=== PATIENT | male | born 1945 | race Caucasian/White ===

== ENCOUNTER 2018-05-14 16:53 | Inpatient (IN) | payer MEDICARE ==
[2018-05-14] MEDS ORDERED: Zofran 4 MG/2 ML VIAL IV ONE (17:19)
[2018-05-14] MEDS ORDERED: MORPHINE SULFATE 2 MG INJ IV ONE (17:19)
[2018-05-14] MEDS ORDERED: TORAdol 30 mg Injection IV ONE (17:19)
[2018-05-14] MEDS ORDERED: Sodium Chloride 0.9% 1000 ML 1,000 ML IV STA (17:19)
--- NOTE | 2018-05-14 17:19 | ERPHSYRPT ---
- History of Present Illness Time Seen by Provider: 05/14/18 17:12 Historian: patient, family Exam Limitations: no limitations Physician History: The patient is a 72-year-old male with his complaining of right lower quadrant abdominal pain for 2-3 days. The pain initially began higher up on the right side that has migrated down to the right lower quadrant. He has not been hungry or thirsty for the past 2 days. He denies nausea or vomiting. He denies diarrhea. He denies fever. His surgical history is negative for abdominal surgeries. His past medical history significant for hypertension. Timing/Duration: day(s) (3), gradual onset, worse Activities at Onset: none Quality: sharpness Abdominal Pain Onset Location: RLQ Pain Radiation: no radiation Severity of Pain-Max: moderate Severity of Pain-Current: moderate Modifying Factors: Improves With: nothing Associated Symptoms: denies symptoms Previous symptoms: no prior history Allergies/Adverse Reactions: No Known Drug Allergies Allergy (Verified 05/14/18 17:17) Home Medications: Amlodipine Besylate 10 mg [Norvasc 10 MG] 10 mg PO DAILY 05/14/18 [History] Primidone 50 MG [Mysoline 50Mg] 50 mg PO DAILY 05/14/18 [History] Propranolol HCl [Propranolol HCl ER] 160 mg PO DAILY 05/14/18 [History] - Review of Systems Constitutional: No Fever, No Chills Eyes: No Symptoms Ears, Nose, & Throat: No Symptoms Respiratory: No Cough, No Dyspnea Cardiac: No Chest Pain, No Edema, No Syncope Abdominal/Gastrointestinal: Abdominal Pain, Appetite Changes Genitourinary Symptoms: No Dysuria Musculoskeletal: No Back Pain, No Neck Pain Skin: No Rash Neurological: No Dizziness, No Focal Weakness, No Sensory Changes Psychological: No Symptoms Endocrine: No Symptoms Hematologic/Lymphatic: No Symptoms Immunological/Allergic: No Symptoms All Other Systems: Reviewed and Negative - Nursing Vital Signs Nursing Vital Signs: Initial Vital Signs Temperature 99.4 F 05/14/18 17:07 Pulse Rate 74 05/14/18 17:07 Respiratory Rate 18 05/14/18 17:07 Blood Pressure 129/83 05/14/18 17:07 O2 Sat by Pulse Oximetry 97 05/14/18 17:07 Pain Scale Pain Intensity 0 - Physical Exam General Appearance: no apparent distress, alert Eye Exam: PERRL/EOMI, eyes nml inspection Ears, Nose, Throat Exam: normal ENT inspection, pharynx normal, moist mucous membranes Neck Exam: normal inspection, non-tender, supple, full range of motion Respiratory Exam: normal breath sounds, lungs clear, No respiratory distress Cardiovascular Exam: regular rate/rhythm, normal heart sounds Gastrointestinal/Abdomen Exam: normal bowel sounds, tenderness (RLQ), guarding ( RLQ), rebound (RLQ) Rectal Exam: not done Back Exam: normal inspection, normal range of motion, No CVA tenderness, No vertebral tenderness Extremity Exam: normal inspection, normal range of motion, pelvis stable Neurologic Exam: alert, oriented x 3, cooperative, normal mood/affect, nml cerebellar function, sensation nml, No motor deficits Skin Exam: normal color, warm, dry SpO2 Interpretation: normal Oxygen Delivery: Room Air - CT Exams Abdomen/Pelvis CT Interpretation: Tele-radiologist Report (Per Dr Robins), appendicitis Ordered Tests: Active Orders 24 hr Category Date Time Status Clean Catch Urine Specimen STAT Care 05/14/18 17:14 Active IV Insertion STAT Care 05/14/18 17:14 Active ABDOMEN AND PELVIS W/0 CONTRAS [CT] Stat Exams 05/14/18 17:46 Taken BLOOD CULTURE Stat Lab 05/14/18 17:42 Received CBC W DIFF Stat Lab 05/14/18 17:41 Completed CMP Stat Lab 05/14/18 17:41 Completed LIPASE Stat Lab 05/14/18 17:41 Completed Lactic Acid Stat Lab 05/14/18 17:19 Completed Manual Differential NC Stat Lab 05/14/18 17:41 Completed UA W/RFX UR CULTURE Stat Lab 05/14/18 18:37 Received Medication Summary Discontinued Medications Generic Name Dose Route Start Last Admin Trade Name Freq PRN Reason Stop Dose Admin Sodium Chloride 1,000 mls @ 999 mls/hr 05/14/18 17:19 05/14/18 18:35 Sodium Chloride 0.9% 1000 Ml IV 05/14/18 18:19 Infused .Q1H1M STA Infusion Sodium Chloride Confirm 05/14/18 17:26 Sodium Chloride 0.9% 1000 Ml Administered 05/14/18 17:27 Dose 1,000 mls @ ud .ROUTE .STK-MED ONE Ketorolac Tromethamine 30 mg 05/14/18 17:19 05/14/18 17:35 Toradol 30 Mg Injection IV 05/14/18 17:20 30 mg STAT ONE Administration Ketorolac Tromethamine Confirm 05/14/18 17:26 Toradol 30 Mg Injection Administered 05/14/18 17:27 Dose 30 mg .ROUTE .STK-MED ONE Morphine Sulfate 2 mg 05/14/18 17:19 05/14/18 17:34 Morphine Sulfate 2 Mg Inj IV 05/14/18 17:20 2 mg STAT ONE Administration Morphine Sulfate Confirm 05/14/18 17:26 Morphine Sulfate 2 Mg Inj Administered 05/14/18 17:27 Dose 2 mg .ROUTE .STK-MED ONE Ondansetron HCl 4 mg 05/14/18 17:19 05/14/18 17:35 Zofran 4 Mg/2 Ml Vial IV 05/14/18 17:20 4 mg STAT ONE Administration Ondansetron HCl Confirm 05/14/18 17:26 Zofran 4 Mg/2 Ml Vial Administered 05/14/18 17:27 Dose 4 mg .ROUTE .STK-MED ONE Lab/Rad Data: Laboratory Result Diagrams 05/14/18 17:41 05/14/18 17:41 Laboratory Results 05/14/18 05/14/18 05/14/18 Range/Units 17:41 17:41 17:19 WBC 19.0 H (4.0-10.5) K/mm3 RBC 5.01 (4.1-5.6) M/mm3 Hgb 15.2 (12.5-18.0) gm/dl Hct 44.4 (42-50) % MCV 88.6 (78-100) fl MCH 30.3 (26-32) pg MCHC 34.2 (32-36) g/dl RDW 13.4 (11.5-14.0) % Plt Count 221 (150-450) K/mm3 MPV 12.0 H (6-9.5) fl Absolute Granulocytes 15.21 H (1.4-6.9) Sodium 134 L (137-145) mmol/L Potassium 3.8 (3.5-5.1) mmol/L Chloride 99 (98-107) mmol/L Carbon Dioxide 23 (22-30) mmol/L Anion Gap 17.2 H (5-15) MEQ/L BUN 16 (9-20) mg/dL Creatinine 0.87 (0.66-1.25) mg/dL Estimated GFR > 60.0 ML/MIN Glucose 118 H (74-106) mg/dL Lactic Acid 1.3 (0.4-2.0) Calcium 9.4 (8.4-10.2) mg/dL Total Bilirubin 0.90 (0.2-1.3) mg/dL AST 20 (17-59) U/L ALT 19 (0-50) U/L Alkaline Phosphatase 71 (38-126) U/L Serum Total Protein 7.6 (6.3-8.2) g/dL Albumin 4.7 (3.5-5.0) g/dL Lipase 38 (23-300) U/L - Progress Progress: improved Progress Note: 05/14/18 18:56 Discussed pt care with Dr Kedar Bonilla and Dr Kedar Esquivel for admission and surgery. Dr Arnold will perform surgery tomorrow morning. Discussed with Dr.: Dede Bailon (For Dr Arnold) Will see patient in: hospital (observation) Counseled pt/family regarding: diagnosis, rad results - Departure Time of Disposition: 18:55 Departure Disposition: Observation (Per Dr Kedar Bonilla for surgery by Dr Arnold) Clinical Impression: Appendicitis Condition: Stable Critical Care Time: No Referrals: DOMONIQUE BONILLA [Primary Care Provider] -
[2018-05-14] MEDS ORDERED: Sodium Chloride 0.9% 1000 ML 1,000 ML ONE (17:26)
[2018-05-14] MEDS ORDERED: MORPHINE SULFATE 2 MG INJ ONE (17:26)
[2018-05-14] MEDS ORDERED: Zofran 4 MG/2 ML VIAL ONE (17:26)
[2018-05-14] MEDS ORDERED: TORAdol 30 mg Injection ONE (17:26)
[2018-05-14 17:56] LABS: Granulocyte Absolute (ANC) 15.21 (1.4-6.9); Hematocrit 44.4 % (42-50); Hemoglobin 15.2 gm/dl (12.5-18.0); Mean Cell Volume 88.6 fl (78-100); Mean Corpuscular Hemoglobin 30.3 pg (26-32); Mean Corpuscular Hgb Concent. 34.2 g/dl (32-36); Platelet Count 221 K/mm3 (150-450); Red Blood Count 5.01 M/mm3 (4.1-5.6); Red Cell Distribution Width 13.4 % (11.5-14.0)
[2018-05-14 18:06] LABS: ALBUMIN 4.7 g/dL (3.5-5.0); ALKALINE PHOSPHATASE 71 U/L (38-126); ANION GAP 17.2 MEQ/L (5-15); BLOOD UREA NITROGEN 16 mg/dL (9-20); CHLORIDE 99 mmol/L (98-107); Calcium 9.4 mg/dL (8.4-10.2); Carbon Dioxide 23 mmol/L (22-30); Creatinine 1 0.87 mg/dL (0.66-1.25); Glucose 118 mg/dL (74-106); LIPASE 38 U/L (23-300); Potassium 3.8 mmol/L (3.5-5.1); SGOT/AST 20 U/L (17-59); SGPT/ALT 19 U/L (0-50); SODIUM 134 mmol/L (137-145); Total Protein 7.6 g/dL (6.3-8.2)
[2018-05-14 18:57] LABS: ATYPICAL LYMPHS 2 %; BAND 2 % (0.0-2.0); Lymphocytes 10 % (24-44); Monocyte 9 % (0.0-12.0); Neutrophils 77 % (36.-66.); Platelet Estimate NORMAL (NORMAL); Total Cells Counted 100
[2018-05-14] MEDS ORDERED: Zosyn 3.375GM/100 Ml D5W 3.375 GM/100 ML IVPB IV STA (18:57)
[2018-05-14] MEDS ORDERED: Zosyn 3.375GM/100 Ml D5W 3.375 GM/100 ML IVPB IV ONE (19:12)
[2018-05-14 19:13] LABS: Appearance SLIGHTLY CLOUDY (CLEAR); Bilirubin SMALL (NEGATIVE); Blood MODERATE Ery/ul (0-5); Glucose NEGATIVE (NEGATIVE); Ketones TRACE (NEGATIVE); Leukocyte Esterase NEGATIVE (NEGATIVE); Nitrite NEGATIVE (NEGATIVE); Protein,Urine Dip 100 (Negative); Specific Gravity 1.024 (1.005-1.025); Urobilinogen 2 mg/dL (0-1)
[2018-05-14] MEDS ORDERED: MORPHINE SULFATE 2 MG INJ IV PRN (19:24)
[2018-05-14] MEDS ORDERED: Zofran 4 MG/2 ML VIAL IV PRN (19:24)
[2018-05-14] MEDS ORDERED: TORAdol 30 mg Injection IV PRN (19:24)
--- NOTE | 2018-05-14 19:48 | XRAY ---
Indication: Right lower quadrant pain. Tenderness on palpation. Multiple contiguous axial images obtained through the abdomen and pelvis without contrast as ordered. Comparison: None Lung bases demonstrates bibasilar atelectasis/scarring. No infiltrate or effusion. Heart is not enlarged. Noncontrasted stomach and bowel loops appear nonobstructed. Appendix is enlarged up to 14 mm diameter with periappendiceal stranding favoring acute appendicitis. Tiny appendicolith at the base of the appendix. Tiny free fluid but no walled off fluid collection or free air. Bilateral adrenal adenomas, largest on the right measuring 2.1 cm. 3.7 cm left renal cyst. Previous prostatectomy. Remaining liver, gallbladder, pancreas, spleen, kidneys, ureters, and bladder appear unremarkable for noncontrast exam. Mild aortoiliac calcifications without AAA. Osseous structures intact with mild degenerative changes throughout the spine. Small fatty left inguinal hernia. Impression: 1. CT findings favoring acute appendicitis with tiny free fluid. 2. Incidental bilateral adrenal adenomas, left renal cyst, and small fatty left inguinal hernia. Comment: Preliminary interpretation was made by [facility]. No discrepancy. CTDI 19.68
[2018-05-14] MEDS: Sodium Chloride 0.9% 1000 ML 1,000 ML IV SCH (19:54)
[2018-05-15] MEDS: Zosyn 3.375GM/100 Ml D5W 3.375 GM/100 ML IVPB IV SCH ×4 (00:43→17:34)
[2018-05-15 05:54] LABS: Basophil (Absolute #) 0 (0-0.4); Eosinophil (Absolute #) 0 (0-0.5); Granulocyte Absolute (ANC) 13.47 (1.4-6.9); Granulocytes % 83.1 % (36.0-66.0); Hematocrit 36.6 % (42-50); Hemoglobin 12.3 gm/dl (12.5-18.0); Lymphocyte (Absolute #) 1.23 (1.0-4.6); Lymphocytes % 7.6 % (24.0-44.0); Mean Cell Volume 90.1 fl (78-100); Mean Corpuscular Hgb Concent. 33.6 g/dl (32-36); Mean Platelet Volume 11.8 fl (6-9.5); Monocytes % 9.3 % (0.0-12.0); Platelet Count 141 K/mm3 (150-450); Red Blood Count 4.06 M/mm3 (4.1-5.6); Red Cell Distribution Width 13.2 % (11.5-14.0); White Blood Count 16.2 K/mm3 (4.0-10.5)
[2018-05-15 05:55] LABS: Mean Corpuscular Hemoglobin 30.2 pg (26-32)
[2018-05-15 06:10] LABS: BLOOD UREA NITROGEN 16 mg/dL (9-20); CHLORIDE 102 mmol/L (98-107); Calcium 8.6 mg/dL (8.4-10.2); Carbon Dioxide 25 mmol/L (22-30); Creatinine 1 0.93 mg/dL (0.66-1.25); Glucose 126 mg/dL (74-106); Potassium 3.7 mmol/L (3.5-5.1); SODIUM 136 mmol/L (137-145)
[2018-05-15] MEDS: Sodium Chloride 0.9% 1000 ML 1,000 ML IV SCH (07:35)
[2018-05-15] MEDS ORDERED: MEFOXIN 2 GM** 2 GM in Dextrose 5%/Water IV Soln. 100ML PLUS BAG 100 ML IV SCH (08:15)
--- NOTE | 2018-05-15 08:26 | PCM.HP ---
History of Present Illness - Chief Complaint Chief Complaint: Appendicitis Date: 05/15/18 History of Present Illness: is a 72 year old male. who began having vague abdominal pains and progressed to right lower quadrant pain tuesday evening into tuesday and much worse on Tuesday. He was eating up until Tuesday and then developed chills and fever and presented to the ED. no vomiting or diarrhea. He was otherwise feeling well up until now. He denies any cardiac history no chest pain or shortness of breath. He walks 2 miles per day usually with no dyspnea or chest pain. - Review of Systems Constitutional: Fever, Chills Eyes: No Symptoms Ears, Nose, & Throat: No Symptoms Respiratory: No Cough, No Short Of Breath Cardiac: No Chest Pain, No Edema, No Syncope Abdominal/Gastrointestinal: Abdominal Pain, No Nausea, No Vomiting, No Diarrhea Genitourinary Symptoms: No Dysuria Musculoskeletal: No Back Pain, No Neck Pain Skin: No Rash Neurological: No Dizziness, No Focal Weakness, No Sensory Changes Psychological: No Symptoms Endocrine: No Symptoms Hematologic/Lymphatic: No Symptoms Immunological/Allergic: No Symptoms Medications & Allergies Home Medications: Home Medication List Amlodipine Besylate 10 mg [Norvasc 10 MG] 10 mg PO DAILY 05/14/18 [History Confirmed 05/14/18] Lisinopril/Hctz 20/12.5 mg [Lisinopril/ Hctz 20/12.5] 1 tab PO DAILY 05/14/18 [ History Confirmed 05/14/18] Primidone 50 MG [Mysoline 50Mg] 50 mg PO HS 05/14/18 [History Confirmed 10/26] Propranolol HCl [Propranolol HCl ER] 160 mg PO DAILY 05/14/18 [History Confirmed 05/14/18] Allergies/Adverse Reactions: Allergies Allergy/AdvReac Type Severity Reaction Status Date / Time No Known Drug Allergies Allergy Verified 05/14/18 17:17 - Past Medical History Past Medical History: Yes Neurological History: Other ENT History: No Pertinent History Cardiac History: High Cholesterol, Hypertension Respiratory History: No Pertinent History Endocrine Medical History: No Pertinent History Musculoskelatal History: No Pertinent History GI Medical History: No Pertinent History History: No Pertinent History Pyscho-Social History: No Pertinent History Male Reproductive Disorders: Prostate Cancer Comment: essential tremor in left hand - Past Surgical History Past Surgical History: Yes Neuro Surgical History: No Pertinent History Cardiac History: No Pertinent History Respiratory Surgery: No Pertinent History GI Surgical History: No Pertinent History Genitourinary Surgical Hx: No Pertinent History Musculskeletal Surgical Hx: No Pertinent History Male Surgical History: Prostate Surgery Other Surgical History: prostate removed 1999 - Social History Smoking Status: Never smoker Exposure to second hand smoke: No Alcohol: Rarely Drug Use: none - Physical Exam Vital Signs: Vital Signs - 24 hr Temp Pulse Resp BP Pulse Ox 05/15/18 07:51 100.3 F 67 16 108/57 94 L 05/15/18 04:00 99.7 F 69 16 117/56 91 L 05/14/18 23:49 99.3 F 76 20 129/60 93 L 05/14/18 19:40 98.5 F 64 20 120/65 95 05/14/18 18:31 64 16 128/72 95 05/14/18 18:02 64 16 116/83 95 05/14/18 17:07 99.4 F 74 18 129/83 97 General Appearance: no apparent distress, alert Neurologic Exam: alert, oriented x 3, cooperative, normal mood/affect, nml cerebellar function, nml station & gait, sensation nml, No motor deficits Eye Exam: PERRL/EOMI, eyes nml inspection Ears, Nose, Throat Exam: normal ENT inspection, TMs normal, pharynx normal, moist mucous membranes Neck Exam: normal inspection, non-tender, supple, full range of motion Respiratory Exam: normal breath sounds, lungs clear, No respiratory distress Cardiovascular Exam: regular rate/rhythm, normal heart sounds, normal peripheral pulses Gastrointestinal/Abdomen Exam: soft, normal bowel sounds, tenderness (right lower quadrant), guarding, No mass, No rebound Back Exam: normal inspection, normal range of motion, No CVA tenderness, No vertebral tenderness Extremity Exam: normal inspection, normal range of motion, pelvis stable Skin Exam: normal color, warm, dry, No rash Lymphatic Exam: No adenopathy Results - Labs Lab/Micro Results: Lab Results-Last 24 Hours 05/14/18 05/14/18 05/14/18 Range/Units 17:19 17:41 17:41 WBC 19.0 H (4.0-10.5) K/mm3 RBC 5.01 (4.1-5.6) M/mm3 Hgb 15.2 (12.5-18.0) gm/dl Hct 44.4 (42-50) % MCV 88.6 (78-100) fl MCH 30.3 (26-32) pg MCHC 34.2 (32-36) g/dl RDW 13.4 (11.5-14.0) % Plt Count 221 (150-450) K/mm3 MPV 12.0 H (6-9.5) fl Gran % (36.0-66.0) % Eos # (Auto) (0-0.5) Absolute Lymphs (auto) (1.0-4.6) Absolute Monos (auto) (0.0-1.3) Lymphocytes % (24.0-44.0) % Monocytes % (0.0-12.0) % Eosinophils % (0.00-5.0) % Basophils % (0.0-0.4) % Absolute Granulocytes 15.21 H (1.4-6.9) Segmented Neutrophils 77 H (36.-66.) % Band Neutrophils 2 (0.0-2.0) % Lymphocytes (Manual) 10 L (24-44) % Monocytes (Manual) 9 (0.0-12.0) % Basophils # (0-0.4) Atypical Lymphocytes 2 % Platelet Estimate NORMAL (NORMAL) RBC Morphology NORMAL Sodium 134 L (137-145) mmol/L Potassium 3.8 (3.5-5.1) mmol/L Chloride 99 (98-107) mmol/L Carbon Dioxide 23 (22-30) mmol/L Anion Gap 17.2 H (5-15) MEQ/L BUN 16 (9-20) mg/dL Creatinine 0.87 (0.66-1.25) mg/dL Estimated GFR > 60.0 ML/MIN Glucose 118 H (74-106) mg/dL Lactic Acid 1.3 (0.4-2.0) Calcium 9.4 (8.4-10.2) mg/dL Total Bilirubin 0.90 (0.2-1.3) mg/dL AST 20 (17-59) U/L ALT 19 (0-50) U/L Alkaline Phosphatase 71 (38-126) U/L Serum Total Protein 7.6 (6.3-8.2) g/dL Albumin 4.7 (3.5-5.0) g/dL Lipase 38 (23-300) U/L Urine Color (YELLOW) Urine Appearance (CLEAR) Urine pH (5-6) Ur Specific [place] (1.005-1.025) Urine Protein (Negative) Urine Ketones (NEGATIVE) Urine Blood (0-5) Butch/ul Urine Nitrite (NEGATIVE) Urine Bilirubin (NEGATIVE) Urine Urobilinogen (0-1) mg/dL Ur Leukocyte Esterase (NEGATIVE) Urine WBC (Auto) (0-5) /HPF Urine RBC (Auto) (0-2) /HPF U Epithel Cells (Auto) (FEW) /HPF Urine Bacteria (Auto) (NEGATIVE) /HPF Calcium Oxalate Crystal (NEGATIVE) /HPF Other Casts (Auto) (NEGATIVE) /LPF Urine Mucus (Auto) (NEGATIVE) /HPF Urine Culture Reflexed (NO) Urine Glucose (NEGATIVE) mg/dL 05/14/18 05/15/18 05/15/18 Range/Units 18:37 05:33 05:33 WBC 16.2 H (4.0-10.5) K/mm3 RBC 4.06 L (4.1-5.6) M/mm3 Hgb 12.3 L (12.5-18.0) gm/dl Hct 36.6 L (42-50) % MCV 90.1 (78-100) fl MCH 30.2 (26-32) pg MCHC 33.6 (32-36) g/dl RDW 13.2 (11.5-14.0) % Plt Count 141 L (150-450) K/mm3 MPV 11.8 H (6-9.5) fl Gran % 83.1 H (36.0-66.0) % Eos # (Auto) 0 (0-0.5) Absolute Lymphs (auto) 1.23 (1.0-4.6) Absolute Monos (auto) 1.50 H (0.0-1.3) Lymphocytes % 7.6 L (24.0-44.0) % Monocytes % 9.3 (0.0-12.0) % Eosinophils % 0.0 (0.00-5.0) % Basophils % 0.0 (0.0-0.4) % Absolute Granulocytes 13.47 H (1.4-6.9) Segmented Neutrophils (36.-66.) % Band Neutrophils (0.0-2.0) % Lymphocytes (Manual) (24-44) % Monocytes (Manual) (0.0-12.0) % Basophils # 0 (0-0.4) Atypical Lymphocytes % Platelet Estimate (NORMAL) RBC Morphology Sodium 136 L (137-145) mmol/L Potassium 3.7 (3.5-5.1) mmol/L Chloride 102 (98-107) mmol/L Carbon Dioxide 25 (22-30) mmol/L Anion Gap 12.0 (5-15) MEQ/L BUN 16 (9-20) mg/dL Creatinine 0.93 (0.66-1.25) mg/dL Estimated GFR > 60.0 ML/MIN Glucose 126 H (74-106) mg/dL Lactic Acid (0.4-2.0) Calcium 8.6 (8.4-10.2) mg/dL Total Bilirubin (0.2-1.3) mg/dL AST (17-59) U/L ALT (0-50) U/L Alkaline Phosphatase (38-126) U/L Serum Total Protein (6.3-8.2) g/dL Albumin (3.5-5.0) g/dL Lipase (23-300) U/L Urine Color POLA (YELLOW) Urine Appearance SLIGHTLY CLOUDY (CLEAR) Urine pH 5.0 (5-6) Ur Specific [place] 1.024 (1.005-1.025) Urine Protein 100 (Negative) Urine Ketones TRACE (NEGATIVE) Urine Blood MODERATE (0-5) Butch/ul Urine Nitrite NEGATIVE (NEGATIVE) Urine Bilirubin SMALL (NEGATIVE) Urine Urobilinogen 2 (0-1) mg/dL Ur Leukocyte Esterase NEGATIVE (NEGATIVE) Urine WBC (Auto) 3-5 (0-5) /HPF Urine RBC (Auto) 0-2 (0-2) /HPF U Epithel Cells (Auto) RARE (FEW) /HPF Urine Bacteria (Auto) RARE (NEGATIVE) /HPF Calcium Oxalate Crystal 26-50 (NEGATIVE) /HPF Other Casts (Auto) NEGATIVE (NEGATIVE) /LPF Urine Mucus (Auto) MANY (NEGATIVE) /HPF Urine Culture Reflexed YES (NO) Urine Glucose NEGATIVE (NEGATIVE) mg/dL Microbiology 05/14/18 18:37 Urine Culture - Preliminary Urine, Void NO GROWTH TO DATE - Radiology Impressions Radiology Exams & Impressions: Radiology Procedures Category Date Time Status ABDOMEN AND PELVIS W/0 CONTRAS [CT] Stat Exams 05/14/18 17:46 Completed - Other Procedures and Tests Respiratory Therapy 05/15/18 08:19 EKG ROUTINE EKG ROUTINE Assessment/Plan (1) Appendicitis Current Visit: Yes Status: Acute Assessment & Plan: preop evaluation we are getting an ekg with his history of hypertension. this is pending otherwise he had good exercise capacity and should be a good surgical candidate for the necessary surgery and no additional pre op testing recommended at this time NPO IV fluids he currently is on Zosyn from ED pending surgery PCP Dr. Arauz Code(s): K37 - UNSPECIFIED APPENDICITIS (2) Essential hypertension Current Visit: Yes Status: Chronic Code(s): I10 - ESSENTIAL (PRIMARY) HYPERTENSION (3) Essential tremor Current Visit: Yes Status: Chronic Code(s): G25.0 - ESSENTIAL TREMOR
[2018-05-15] MEDS ORDERED: Lactated Ringers 1,000 ML IV SCH (08:30)
[2018-05-15] MEDS ORDERED: Lactated Ringers 1,000 ML IV ONE (09:23)
[2018-05-15] MEDS ORDERED: Sensorcaine 0.25% 10 ML ONE (09:23)
[2018-05-15] MEDS: NON-FORMULARY ITEM PO SCH (09:27)
[2018-05-15] MEDS: NORVASC 5 MG PO SCH (09:28)
[2018-05-15] MEDS ORDERED: PROPRANOLOL HCL 160 MG PO SCH (10:00)
[2018-05-15] MEDS ORDERED: NON-FORMULARY ITEM (Amlodipine Besylate 10 Mg [Norvasc 10 Mg] 10 MG) PO SCH (10:00)
--- NOTE | 2018-05-15 13:26 | CONS ---
CONSULT DATE: 05/15/2018 HISTORY: The patient was apparently admitted around 1700 hours or so yesterday to the emergency room. Dr. Esquivel was called for acute appendicitis and two to three day history of some right-sided abdominal pain. CT scan showed appendicolith, a lot of inflammatory changes consistent with appendicitis. Again, Dr. Esquivel was called sounds like between 1700 and 1800 hours yesterday. He did not have time to do the appendectomy apparently. PAST MEDICAL HISTORY: Hypertension, prostate cancer and some tremors. He denies any chronic illnesses. PAST SURGICAL HISTORY: Prostatectomy for prostate cancer in the past. MEDICATIONS: Amlodipine, primidone, propranolol. ALLERGIES: NKDA. FAMILY HISTORY: Negative for any major medical problems according to the patient. SOCIAL HISTORY: No alcohol abuse. REVIEW OF SYSTEMS: Twelve systems reviewed per admission assessment, pertinent for as noted above. He denied any nausea or vomiting. He denies any change in bowel habits. The aches and pains have resolved. Otherwise twelve systems reviewed. No chest pain. LAB DATA AND TESTS: CT scan showed acute appendicitis and some small renal adenomas up to 2 cm and 3.7 cm renal cyst, small amount of fat in the inguinal canal area. White blood cell count 16,000. PHYSICAL EXAMINATION: Temperature 99.7F, blood pressure 117/56, pulse 60's to 70's. GENERAL: No acute distress. HEENT: Sclera nonicteric. NECK: No JVD. CHEST: Equal excursion, nonlabored breathing. CVS: Regular rate. rhythm and pulse. ABDOMEN: Some tenderness and a little bit of guarding right lower quadrant. No rebound currently. EXTREMITIES: No significant edema. NEURO: Alert, oriented, moving extremities grossly symmetrically. IMPRESSION: The patient was seen for Dr. Esquivel who was consulted yesterday for the patient and has not had any time to do an appendectomy so asked that I see the patient while I was doing other cases here. He likely has acute appendicitis. He could even have perforated appendicitis. Either way he needs laparoscopic appendectomy possible open. He was explained the risk, benefits of the procedure in detail but not limited to bleeding or infection, risk of trocar injury, risk of subsequent abscess formation possibly requiring percutaneous or open drainage even at later date, general risk of anesthesia, possibility of needing open procedure but not limited to. He understands perioperative risk of ileus, nausea, vomiting but not limited to or risk of abscess down the road that might require percutaneous or open drainage at a later date. He understands all of the above but not limited to, will proceed with diagnostic laparoscopy, laparoscopic appendectomy possible open when OR time is available later today or when OR time available as the OR is tied up at the moment. He agrees to the planned procedure. Continue IV antibiotics in the meantime.
--- NOTE | 2018-05-15 15:35 | OP ---
SURGERY DATE/TIME: 05/15/2018 1445 This patient was seen for Dr. Emre Esquivel who was consulted yesterday. PREOPERATIVE DIAGNOSIS: Acute appendicitis. POSTOPERATIVE DIAGNOSIS: Acute ruptured appendicitis, perforated appendicitis and peritonitis. PROCEDURE: Laparoscopic appendectomy. SURGEON: Dr. Esau Barrientos. SALES AND MERCHANDISING REPRESENTATIVE: Mk Dangelo, Medical Student III. ANESTHESIA: General. ESTIMATED BLOOD LOSS: Minimal. INDICATIONS: As noted above. Risks and benefits explained in detail but not limited to, consent obtained. DESCRIPTION OF PROCEDURE AND FINDINGS: The patient was taken to the operating room. General anesthesia was induced. Abdomen prepped and draped in usual sterile fashion. After official time out and no disagreement with planned procedure, a transverse incision made at supraumbilical area. Fascia grasped and pulled upwards. Veress needle inserted and tested with saline. Pneumoperitoneum accomplished insufflating from opening pressure of 0 to 15. A 5 mm bladeless port and camera were inserted without difficulty followed by a right mid abdomen 12 mm port and a lower mid abdomen 5 mm port under direct vision with the camera. There is no evidence of any intra-abdominal injury secondary to trocar insertion. The patient was noted to have gangrenous appendix, perforation with some purulence in the right lower quadrant, some peritonitis this is carefully mobilized upwards. Appendix mobilized at the base of the cecum. EndoGIA stapler fired across the base of the appendix to the cecum. Appendix mobilized up more out of gangrenous portion and an area ruptured carefully mobilized upwards with the LigaSure device staying directly on the border of the appendix carefully taking down the mesoappendix staying directly on the border of the appendix elevating it away from retroperitoneum and then placed in Pleatman's sac and pulled free. Copious amount of irrigation of the abscess and peritonitis was accomplished irrigating as clear as possible. Because of all the extensive inflammation, ELENA drain is placed in the right lower quadrant out through inferior 5 mm port site. 12 mm port defect fascial defect closed with puncture closure device with #1 Vicryl. Pneumoperitoneum decompressed. Skin incision closed with 4-0 Vicryl. Steri-Strips and sterile dressing applied. 0.25% Marcaine local injected along the skin incision fascial defects. The patient tolerated the procedure well. There were no immediate complications. Findings discussed with the family out in the waiting area. Will continue him on IV antibiotics.
[2018-05-15] MEDS ORDERED: TYLENOL 325 MG PO PRN (17:11)
[2018-05-15] MEDS: MYSOLINE 50MG PO SCH (17:44)
[2018-05-15] MEDS: MORPHINE SULFATE 2 MG INJ IV PRN (18:42)
[2018-05-15] MEDS ORDERED: SUBLIMAZE 250 MCG/5 ML IV ONE (19:25)
[2018-05-15] MEDS ORDERED: BRIDION 200MG/2ML IV ONE (19:25)
[2018-05-15] MEDS ORDERED: DIPRIVAN 200 MG/20 ML IV ONE (19:25)
[2018-05-15] MEDS ORDERED: Quelicin Fliptop 200 MG/10 ML IV ONE (19:25)
[2018-05-15] MEDS ORDERED: Versed 2 MG/2 ML Injection IV ONE (19:25)
[2018-05-15] MEDS ORDERED: Zemuron 100 MG/10 ML IV ONE (19:25)
[2018-05-15] MEDS: FLAGYL 500 MG IVPB 500 MG/100 ML BAG IV SCH (20:34)
[2018-05-16] MEDS: Zosyn 3.375GM/100 Ml D5W 3.375 GM/100 ML IVPB IV SCH ×5 (00:18→23:24)
[2018-05-16] MEDS: FLAGYL 500 MG IVPB 500 MG/100 ML BAG IV SCH ×3 (05:12→21:44)
[2018-05-16 05:35] LABS: Hematocrit 34.2 % (42-50); Hemoglobin 11.4 gm/dl (12.5-18.0); Mean Cell Volume 91.9 fl (78-100); Mean Corpuscular Hemoglobin 30.6 pg (26-32); Mean Corpuscular Hgb Concent. 33.3 g/dl (32-36); Mean Platelet Volume 11.5 fl (6-9.5); Platelet Count 117 K/mm3 (150-450); Red Blood Count 3.72 M/mm3 (4.1-5.6); Red Cell Distribution Width 12.9 % (11.5-14.0); White Blood Count 9.2 K/mm3 (4.0-10.5)
--- NOTE | 2018-05-16 08:37 | PCM.NOTE ---
Date and Time: 05/16/18 0837 Subjective Assessment: having more pain that comes on all at once at times in the right lower quadrant not associated with any particular activity movement does make it more sore he did sleep last night he has eaten breakfast and no nausea no bowel movement Objective Exam General Appearance: no apparent distress, alert Neurologic Exam: alert, oriented x 3, cooperative, normal mood/affect, nml cerebellar function, sensation nml, No motor deficits Skin Exam: normal color, warm, dry Eye Exam: PERRL, EOMI, eyes nml inspection Ears, Nose, Throat Exam: normal ENT inspection, pharynx normal, moist mucous membranes Neck Exam: normal inspection, non-tender, supple, full range of motion Respiratory Exam: normal breath sounds, lungs clear, No respiratory distress Cardiovascular Exam: regular rate/rhythm, normal heart sounds Gastrointestinal/Abdomen Exam: soft, normal bowel sounds, tenderness, other (ELENA drain with 45 ml bloody purulent drainage), No distention, No mass Extremity Exam: normal inspection, normal range of motion Back Exam: normal inspection, normal range of motion, No CVA tenderness, No vertebral tenderness Male Genitalia Exam: deferred Rectal Exam: deferred OBJECTIVE DATA Vital Signs: Vital Signs - 24 hr Temp Pulse Resp BP Pulse Ox 05/16/18 07:10 60 18 96 05/16/18 07:06 98.7 F 57 L 20 104/55 95 05/16/18 04:00 18 05/16/18 03:52 99.9 F 53 L 18 108/56 92 L 05/16/18 00:00 97.7 F 73 18 108/55 91 L 05/15/18 22:29 100 F 05/15/18 21:26 92 L 05/15/18 20:00 100.3 F 73 20 128/61 92 L 05/15/18 19:30 102.9 F 67 18 111/54 92 L 05/15/18 18:30 102.4 F 73 20 128/61 92 L 05/15/18 17:46 97.3 F 80 20 138/73 90 L 05/15/18 17:03 99.3 F 60 18 122/69 94 L 05/15/18 16:55 95 05/15/18 16:30 97.6 F 62 16 118/66 94 L 05/15/18 16:15 98.3 F 66 20 123/69 88 L 05/15/18 11:11 99.4 F 65 18 108/58 95 05/15/18 08:52 100.3 F 67 16 108/57 94 L Oxygen-Last 24 hours O2 Percentage 2 Liters = 28% O2 Percentage 2 Liters = 28% O2 Percentage 2 Liters = 28% O2 Percentage 2 Liters = 28% O2 Percentage 2 Liters = 28% O2 Percentage 2 Liters = 28% O2 Percentage 2 Liters = 28% O2 Percentage 2 Liters = 28% Pain Assessment - Last Documented Pain Intensity 0 Pain Scale Used FLACC Intake and Output: Intake & Output 05/13/18 05/14/18 05/15/18 05/16/18 12:59 11:59 11:59 11:59 Intake Total 806 1811 Output Total 635 Balance 806 1176 Weight 93.1 kg Lab Results: Lab Results-Last 24 Hours 05/16/18 Range/Units 05:18 WBC 9.2 (4.0-10.5) K/mm3 RBC 3.72 L (4.1-5.6) M/mm3 Hgb 11.4 L (12.5-18.0) gm/dl Hct 34.2 L (42-50) % MCV 91.9 (78-100) fl MCH 30.6 (26-32) pg MCHC 33.3 (32-36) g/dl RDW 12.9 (11.5-14.0) % Plt Count 117 L (150-450) K/mm3 MPV 11.5 H (6-9.5) fl Radiology Exams: Radiology Procedures Category Date Time Status ABDOMEN AND PELVIS W/0 CONTRAS [CT] Stat Exams 05/14/18 17:46 Completed Assessment/Plan (1) Appendicitis Current Visit: Yes Status: Acute Assessment & Plan: post op day 1 with suspected perforation gangrenous on the operation per Dr. Iliana PARKER drain with purulent output last elevated temp was 100.0 at 20:00 on flagyl with the zosyn currently per surgery recommendations on regular diet lovenox for ppx disposition and antiobitics per surgery bp lower normal asymptomatic. Continue proproanolol and amlodipine and continue off the lisinopril/hctz monitor bp ambulate as tolerated Code(s): K37 - UNSPECIFIED APPENDICITIS (2) Essential hypertension Current Visit: Yes Status: Chronic Code(s): I10 - ESSENTIAL (PRIMARY) HYPERTENSION (3) Essential tremor Current Visit: Yes Status: Chronic Code(s): G25.0 - ESSENTIAL TREMOR
[2018-05-16] MEDS: MORPHINE SULFATE 2 MG INJ IV PRN (09:31)
[2018-05-16] MEDS: NORVASC 5 MG PO SCH (11:47)
[2018-05-16] MEDS: ENOXAPARIN SODIUM SQ SCH (11:47)
[2018-05-16] MEDS: NON-FORMULARY ITEM PO SCH (11:48)
[2018-05-16] MEDS: NORCO 5/325 MG PO PRN ×2 (12:02→16:07)
[2018-05-16] MEDS: MYSOLINE 50MG PO SCH (21:55)
[2018-05-17] MEDS: NORCO 5/325 MG PO PRN (01:52)
[2018-05-17] MEDS: FLAGYL 500 MG IVPB 500 MG/100 ML BAG IV SCH ×2 (04:02→11:48)
[2018-05-17] MEDS: Zosyn 3.375GM/100 Ml D5W 3.375 GM/100 ML IVPB IV SCH ×2 (05:36→13:34)
[2018-05-17 05:51] LABS: Hematocrit 34.4 % (42-50); Hemoglobin 11.5 gm/dl (12.5-18.0); Mean Cell Volume 90.5 fl (78-100); Mean Corpuscular Hgb Concent. 33.4 g/dl (32-36); Mean Platelet Volume 11.9 fl (6-9.5); Platelet Count 153 K/mm3 (150-450); Red Cell Distribution Width 12.9 % (11.5-14.0); White Blood Count 7.4 K/mm3 (4.0-10.5)
[2018-05-17 05:56] LABS: Mean Corpuscular Hemoglobin 30.2 pg (26-32)
[2018-05-17 06:05] LABS: ALBUMIN 3.4 g/dL (3.5-5.0); ALKALINE PHOSPHATASE 58 U/L (38-126); ANION GAP 10.2 MEQ/L (5-15); BLOOD UREA NITROGEN 9 mg/dL (9-20); CHLORIDE 100 mmol/L (98-107); Calcium 8.4 mg/dL (8.4-10.2); Carbon Dioxide 29 mmol/L (22-30); Creatinine 1 0.76 mg/dL (0.66-1.25); Glucose 118 mg/dL (74-106); Potassium 3.5 mmol/L (3.5-5.1); SGOT/AST 20 U/L (17-59); SGPT/ALT 19 U/L (0-50); SODIUM 136 mmol/L (137-145); Total Protein 5.9 g/dL (6.3-8.2)
--- NOTE | 2018-05-17 08:07 | PCM.NOTE ---
Date and Time: 05/17/1807 OBJECTIVE DATA Vital Signs: Vital Signs - 24 hr Temp Pulse Resp BP Pulse Ox 05/17/18 07:22 98.6 F 46 L 18 109/58 95 05/17/18 04:00 97.9 F 51 L 18 102/57 91 L 05/17/18 00:00 99.3 F 62 20 123/67 92 L 05/16/18 20:00 18 05/16/18 19:57 93 L 05/16/18 19:45 99.0 F 55 L 18 103/65 93 L 05/16/18 16:00 18 05/16/18 15:57 98.2 F 51 L 18 134/62 95 05/16/18 12:00 98.5 F 50 L 18 105/55 94 L Oxygen-Last 24 hours O2 Percentage 2 Liters = 28% O2 Percentage 2 Liters = 28% O2 Percentage 2 Liters = 28% O2 Percentage 2 Liters = 28% O2 Percentage 2 Liters = 28% Pain Assessment - Last Documented Pain Intensity 0 Pain Scale Used 0-10 Pain Scale Intake and Output: Intake & Output 05/14/18 05/15/18 05/16/18 05/17/18 11:59 11:59 11:59 11:59 Intake Total 806 2171 2222 Output Total 685 450 Balance 806 1486 1772 Weight 93.1 kg Lab Results: Lab Results-Last 24 Hours 05/17/18 05/17/18 Range/Units 05:41 05:41 WBC 7.4 (4.0-10.5) K/mm3 RBC 3.80 L (4.1-5.6) M/mm3 Hgb 11.5 L (12.5-18.0) gm/dl Hct 34.4 L (42-50) % MCV 90.5 (78-100) fl MCH 30.2 (26-32) pg MCHC 33.4 (32-36) g/dl RDW 12.9 (11.5-14.0) % Plt Count 153 (150-450) K/mm3 MPV 11.9 H (6-9.5) fl Sodium 136 L (137-145) mmol/L Potassium 3.5 (3.5-5.1) mmol/L Chloride 100 (98-107) mmol/L Carbon Dioxide 29 (22-30) mmol/L Anion Gap 10.2 (5-15) MEQ/L BUN 9 (9-20) mg/dL Creatinine 0.76 (0.66-1.25) mg/dL Estimated GFR > 60.0 ML/MIN Glucose 118 H (74-106) mg/dL Calcium 8.4 (8.4-10.2) mg/dL Total Bilirubin 0.60 (0.2-1.3) mg/dL AST 20 (17-59) U/L ALT 19 (0-50) U/L Alkaline Phosphatase 58 (38-126) U/L Serum Total Protein 5.9 L (6.3-8.2) g/dL Albumin 3.4 L (3.5-5.0) g/dL Multi-Disciplinary Progress Notes: Multi-Disciplinary Progress Notes 05/16/18 09:50 (created 05/16/18 12:22) Case Management Note by Sri Hummel VISITED WITH PT, REVIEWED DISCHARGE PLAN. INDEPENDENT WITH ALL ADL'S. AT HOME TO ASSIST WITH NEEDS. DENIES ADDNL NEEDS FOR DISCHARGE. PLAN TO RETURN HOME TO PRE EPISODIC LEVEL OF FNX. Initialized on 05/16/18 12:22 - END OF NOTE Assessment/Plan (1) Appendicitis Current Visit: Yes Status: Acute Code(s): K37 - UNSPECIFIED APPENDICITIS (2) Essential hypertension Current Visit: Yes Status: Chronic Code(s): I10 - ESSENTIAL (PRIMARY) HYPERTENSION (3) Essential tremor Current Visit: Yes Status: Chronic Code(s): G25.0 - ESSENTIAL TREMOR
[2018-05-17] MEDS: ENOXAPARIN SODIUM SQ SCH (09:30)
[2018-05-17] MEDS: NORVASC 5 MG PO SCH (09:30)
[2018-05-17] MEDS ORDERED: Colace 100 MG PO SCH (10:00)
[2018-05-17] MEDS: NON-FORMULARY ITEM PO SCH (10:05)
[2018-05-17 15:35] VITALS: BP 126/66; PULSE 57; O2SAT 90
--- NOTE | 2018-05-17 16:13 | PCM.DCORD ---
- Discharge Discharge Date: 05/17/18 Disposition: Home, Self-Care Condition: Stable Prescriptions: New Amox Tr/Potass Clav. 875 mg [Augmentin 875-125 Tablet] 1 each PO BID # 10 tablet Hydrocodone Bit/Acetaminophen [[place] 5-325 Tablet] 1 each PO Q4H PRN #21 tablet MDD 6 PRN Reason: Pain Continue Propranolol HCl [Propranolol HCl ER] 160 mg PO DAILY Primidone 50 MG [Mysoline 50Mg] 50 mg PO HS Amlodipine Besylate 10 mg [Norvasc 10 MG] 10 mg PO DAILY Lisinopril/Hctz 20/12.5 mg [Lisinopril/ Hctz 20/12.5] 1 tab PO DAILY Instructions: Appendicitis in Adults Follow up with: HEATH ORTEGA [COURTESY STAFF] - 05/24/18 10:35 am (at t.h. office )
--- NOTE | 2018-05-18 08:37 | PCM.DS ---
Discharge Summary Date of Admission: 05/15/18 14:45 Date of Discharge: 05/17/18 Admitting Physician: DOMONIQUE BONILLA Consults: Consults on Case 05/14/18 19:24 Consult Surgery ROUTINE Primary Care Provider: DOMONIQUE BONILLA Allergies Allergies No Known Drug Allergies Allergy (Verified 05/14/18 17:17) Hospital Summary - Hospital Course Hospital Course: Presented with 4 days of increasing abdominal pain in the right lower quadrant. CT showed appendicitis. Dr. Esquivel was consulted and he was placed on IV Zosyn and taken to the operating room on 05/15/[address] Barrientos. He found an acute ruptured appendicitis with peritonitis. IT was removed laparoscopically and irrigated and ELENA drain was placed and he returned to the floor on iv zosyn and flagyl. The drainage from the ELENA drain began to improve on the antibiotics. He was ambulating well. His pain was controlled on the medications. Dr. Barrientos rounded on 05/17/18 and had the ELENA drain pulled at that time and discharged him home in good condition on po augmentin for an additional 5 days. - Vitals & Intake/Output Vital Signs: Vital Signs Temperature 98.4 F 05/17/18 15:34 Pulse Rate 57 L 05/17/18 15:34 Respiratory Rate 18 05/17/18 16:00 Blood Pressure 126/66 05/17/18 15:34 O2 Sat by Pulse Oximetry 90 L 05/17/18 15:34 Oxygen-Last Documented O2 Percentage 2 Liters = 28% Intake & Output: Intake & Output 05/15/18 05/16/18 05/17/18 05/18/18 11:59 11:59 11:59 11:59 Intake Total 806 2171 2702 120 Output Total 685 450 Balance 806 1486 2252 120 Weight 93.1 kg 93.1 kg - Lab Result Diagrams: 05/17/18 05:41 05/17/18 05:41 Micro Results-Entire Visit: Microbiology 05/14/18 18:37 Urine Culture - Final Urine, Void NO GROWTH 05/14/18 17:42 Blood Culture - Preliminary Blood NO GROWTH TO DATE 05/14/18 17:41 Blood Culture - Preliminary Blood NO GROWTH TO DATE - Procedures and Test Procedures and Tests throughout Hospitalization: Therapy Orders & Screens 05/15/18 08:19 EKG ROUTINE Comment: Diagnosis: Appendicitis 05/15/18 16:54 Oxygen NASAL CANNULA 2 lpm Comment: Diagnosis: Appendicitis 05/15/18 16:55 Respiratory Therapy Assessment DAILY Comment: Diagnosis: Appendicitis Discharge Exam General Appearance: no apparent distress, alert Neurologic Exam: alert, oriented x 3, cooperative, normal mood/affect, nml cerebellar function, sensation nml, No motor deficits Skin Exam: normal color, warm, dry Eye Exam: PERRL, EOMI, eyes nml inspection Ears, Nose, Throat Exam: normal ENT inspection, pharynx normal, moist mucous membranes Neck Exam: normal inspection, non-tender, supple, full range of motion Respiratory Exam: normal breath sounds, lungs clear, No respiratory distress Cardiovascular Exam: regular rate/rhythm, normal heart sounds Gastrointestinal/Abdomen Exam: soft, normal bowel sounds, tenderness, No distention, No mass, No guarding Extremity Exam: normal inspection, normal range of motion Back Exam: normal inspection, normal range of motion, No CVA tenderness, No vertebral tenderness Male Genitalia Exam: deferred Rectal Exam: deferred Final Diagnosis/Problem List - Final Discharge Diagnosis/Problem (1) Ruptured suppurative appendicitis Status: Acute (2) Peritonitis Status: Acute (3) Essential hypertension Status: Chronic (4) Essential tremor Status: Chronic - Discharge Discharge Date: 05/17/18 Disposition: Home, Self-Care Condition: Stable Prescriptions: New Amox Tr/Potass Clav. 875 mg [Augmentin 875-125 Tablet] 1 each PO BID # 10 tablet Hydrocodone Bit/Acetaminophen [[place] 5-325 Tablet] 1 each PO Q4H PRN #21 tablet MDD 6 PRN Reason: Pain Continue Propranolol HCl [Propranolol HCl ER] 160 mg PO DAILY Primidone 50 MG [Mysoline 50Mg] 50 mg PO HS Amlodipine Besylate 10 mg [Norvasc 10 MG] 10 mg PO DAILY Lisinopril/Hctz 20/12.5 mg [Lisinopril/ Hctz 20/12.5] 1 tab PO DAILY Instructions: Appendicitis in Adults Follow up with: HEATH BARRIENTOS [COURTESY STAFF] - 05/24/18 10:35 am (at t.h. office )
== END 2018-05-17 16:50 | disposition home or self-care (01) | DRG 372 ==
LOC: ED 16:53 → MED SURG 19:24 → OBSVTOIN 05-15 14:45
PROVIDERS: ADMIT Family Medicine; ATTEND Family Medicine
DX: K35.33 Acute appendicitis with perforation, localized peritonitis, and gangrene, with abscess (principal); E46 Unspecified protein-calorie malnutrition; I10 Essential (primary) hypertension; G25.0 Essential tremor; E78.00 Pure hypercholesterolemia, unspecified; D30.00 Benign neoplasm of unspecified kidney; Z79.899 Other long term (current) drug therapy; Z85.46 Personal history of malignant neoplasm of prostate; K37 Unspecified appendicitis; R10.31 Right lower quadrant pain
CPT/HCPCS: 00840; 36000; 36415; 44960; 74176; 80048; 80053; 81001; 83605; 83690; 85025; 85027; 87040; 87086; 93005; 94760; 96360; 96374; 96375; 96376; 99100; 99285; G0378; 88304; J0330; J0694; J1650; J1885; J2250; J2270; J2405; J2543; J2704; J3010; A9270-GY

== ENCOUNTER 2023-10-31 10:29 | Day surgery (SDC) | payer MEDICARE ==
--- NOTE | 2023-10-31 10:22 | HP ---
PROCEDURE DATE: 10/31/2023 HISTORY OF PRESENT ILLNESS: 78 year-old with history of some right inguinal pain since April, no prior repair in that area. CT showed hernia with nonobstructed bowel in it. Had a prior open prostate cancer surgery in the past. PAST MEDICAL HISTORY: He has got some benign tremors, hypertension, and prior history of prostate cancer. CURRENT MEDICATIONS: Amlodipine, Lisinopril, primidone, propranolol. ALLERGIES: NKDA. PAST SURGICAL HISTORY: Radical prostatectomy in the past. Had appendectomy in the past. FAMILY HISTORY: Some liver disease, heart disease. SOCIAL HISTORY: No smoking. Occasional alcohol use. REVIEW OF SYSTEMS: 12 systems reviewed. No chest pain or palpitations. Other systems negative or noncontributory other than above and per preadmission questionnaire. PHYSICAL EXAMINATION: Height 6', BMI 26.85. GENERAL: No acute distress. HEENT: Sclerae nonicteric. NECK: No JVD. CHEST: Equal excursion. Nonlabored breathing. CVS: Regular rate and rhythm. ABDOMEN: Soft. Right inguinal hernia on exam. EXTREMITIES: No cyanosis or edema. NEURO: Alert and oriented, moving extremities symmetrically. PSYCH: Appropriate mood and affect. SKIN: Dry. IMPRESSION: 1. RIGHT INGUINAL HERNIA. HAS SOME SYMPTOMS. RECOMMEND REPAIR. OPTIONS DISCUSSED, MINIMALLY INVASIVE VS OPEN PROCEDURE. GIVEN HIS PRIOR OPEN RADICAL PROSTATECTOMY LONG DISCUSSED WITH THE PATIENT AND WE BOTH DECIDED TO PROCEED WITH OPEN INGUINAL HERNIA REPAIR WITH MESH. He was shown the risk sheet and explained the procedure in detail, but not limited to, bleeding; infection; risk of hematoma or seroma formation; risk of hydrocele formation; risk of healing risk; risk of mesh infection or erosion possibly requiring removal; risk of hernia recurrence; risk of black and blue and bruising; risk of aches, pain, burning, or numbness with risk of sensory nerve irrigation and scar formation with up to 10-12% risk of chronic aches and pains; possibility of interfering with sexual function from a pain standpoint; risk or urinary retention; risk of bowel, bladder, or blood vessel issues or injury; risks of anesthesia, deep venous thrombosis, pulmonary embolism, or pneumonia, but not limited to. He understands. Will proceed with outpatient open right inguinal hernia repair. Otherwise, continue medications for his hypertension.
[2023-10-31] MEDS ORDERED: EXPAREL 133 MG/10 ML VIAL IJ ONE (10:30)
[2023-10-31] MEDS ORDERED: Lactated Ringers 1,000 ML IV ONE (10:43)
[2023-10-31] MEDS: Lactated Ringers 1,000 ML IV SCH (10:45)
[2023-10-31] MEDS: CEFAZOLIN 2 GM-D5W BAG** 2 GM/50 ML ML IV SCH (10:45)
[2023-10-31 11:15] VITALS: RESP 16
[2023-10-31] MEDS ORDERED: Sensorcaine 0.25% 10 ML ONE (11:37)
[2023-10-31] MEDS ORDERED: ROCURONIUM BROMIDE IV ONE (12:45)
[2023-10-31] MEDS ORDERED: DIPRIVAN 200 MG/20 ML IV ONE (12:45)
[2023-10-31] MEDS ORDERED: Xylocaine-Mpf 2% 5 Ml Vial ONE (12:45)
[2023-10-31] MEDS ORDERED: Zofran 4 MG/2 ML VIAL ONE (12:45)
[2023-10-31] MEDS ORDERED: Decadron 4 MG INJ ONE (12:45)
[2023-10-31] MEDS ORDERED: SUBLIMAZE 100 MCG/2 ML ONE ×2 (12:51→15:17)
[2023-10-31] MEDS ORDERED: ATROPINE SULFATE 1MG ONE (12:57)
[2023-10-31] MEDS ORDERED: Marcaine Mpf 0.5% Vial 30 Ml ONE (13:34)
[2023-10-31] MEDS ORDERED: OFIRMEV 100 ML IV ONE (13:35)
[2023-10-31] MEDS ORDERED: DEXMEDETOMIDINE 80 MCG/20ML-NS IV ONE (13:44)
[2023-10-31] MEDS ORDERED: Ephedrine Sulfate 50 MG/ML ONE (14:06)
[2023-10-31] MEDS ORDERED: BRIDION 200MG/2ML IV ONE (14:09)
--- NOTE | 2023-10-31 15:18 | OP ---
SURGERY DATE: 10/31/2023 SURGERY TIME: 1315 PREOPERATIVE DIAGNOSIS: 1. SYMPTOMATIC RIGHT INGUINAL HERNIA WITH HISTORY OF BOWEL CONTENTS. POSTOPERATIVE DIAGNOSIS: 1. SYMPTOMATIC RIGHT INGUINAL HERNIA WITH HISTORY OF BOWEL CONTENTS INCLUDING SMALL CORD LIPOMA. PROCEDURE: 1. Open repair right inguinal hernia with mesh. 2. Excisional biopsy of right cord lipoma. SURGEON: Dr. Esau Barrientos. ANESTHESIA: General. ESTIMATED BLOOD LOSS: Minimal. INDICATIONS: As noted above. Consent obtained. The site was confirmed and marked preoperatively. DESCRIPTION OF PROCEDURE AND FINDINGS: The patient was taken to the OR. General anesthesia was induced. Prepped and draped in sterile fashion. After official time-out, no disagreement in planned procedure. Transverse incision made in right inguinal area. Dissection carried down. A couple superficial subcutaneous veins were clamped, divided, and ligated with Vicryl ties. Another little perforated oozing subcutaneous vein was suture ligated with 3-0 Vicryl. Dissection carried down through the Kiko's fascia. Split in direction with its fibers towards the external ring with the Metzenbaum scissors carefully protecting the underlying visible ilioinguinal nerve. Cord was mobilized up off the pubic tubercle with a [place] drain. There did not appear to be any big direct component. He did have a moderately large indirect hernia. The sac was carefully dissected away from the cremasteric fibers, vessels, and vas and was kind of cleared of all these structures down to the internal ring where it was opened and noted to be devoid of any contents at this point. It was high ligated with 0 Prolene and passed off. Again, there was no significant direct component at this time to warrant any extra sutures in the floor. It was felt that a mesh repair 2 X 4 piece of mesh. This was secured to the fascia and pubic tubercle with 0 Prolene run along Percy's ligament, along the showing portion of the inguinal ligament laterally to the internal ring. The tails of the two mesh were tacked together lateral with interrupted 0 Prolene. 0 Prolene used to transfix the mesh to the rectus fascia medially. 0 Vicryl used to transfix to the aponeurosis internal oblique superiorly avoiding the visible branches of the iliohypogastric nerve. Tails of the mesh were nice and flat under the external oblique. The new internal ring was felt to be not too tight. The mesh was nice and tension free. The patient tolerated this procedure well. Good hemostasis noted. Wounds irrigated out. External oblique closed with 0 Vicryl, Kiko's closed with 3-0 Vicryl, subcutaneous closed with 3-0 Vicryl. Small oozing perforated vein was controlled with 3-0 Vicryl suture ligature. Superficial subcutaneous closed with 3-0 Vicryl. Skin closed with 4-0 Vicryl. Steri-strips and sterile dressing applied. 0.25% Marcaine local injected back towards the origin back toward the iliac spine. Patient tolerated the procedure well. Findings discussed with his out in the waiting area. Transferred to recovery in stable condition. Will see him back in the office next week.
[2023-10-31] MEDS ORDERED: Hydromorphone 1 mg/ml Injection ONE (15:46)
[2023-10-31 16:39] VITALS: BP 178/96; PULSE 56; O2SAT 98
[2023-10-31 16:44] VITALS: TEMP 97.4
== END 2023-10-31 16:44 | disposition home or self-care (01) ==
LOC: SDC 10:29
PROVIDERS: ATTEND Surgery
DX: K40.90 Unilateral inguinal hernia, without obstruction or gangrene, not specified as recurrent (principal); D17.6 Benign lipomatous neoplasm of spermatic cord
CPT/HCPCS: 00840; 49505; 55520; 64486; 76937; 76942; 88302; 93005; 99100; C1781; J0461; J0690; J1100; J1170; J2405; J2704; J3010